=== PATIENT | female | born 1960 | race African-American/Black ===

== ENCOUNTER 2018-08-30 21:54 | Emergency (ER) | payer BC ==
[~2018-08-30] VITALS: Ht 170.2 cm; Wt 62.0 kg
[2018-08-31] MEDS ORDERED: IBUPROFEN 800MG TABLET PO ONE (03:45)
[2018-08-31 03:56] VITALS: BP 143/80
[2018-08-31 07:55] LABS: CLARITY URINE CLEAR (CLEAR); COLOR URINE YELLOW (YELLOW); KETONES URINE NEGATIVE (NEGATIVE); LEUKOCYTE ESTERASE URINE 2+ (NEGATIVE); NITRITE URINE NEGATIVE (NEGATIVE); OCCULT BLOOD URINE 2+ (NEGATIVE); PROTEIN URINE NEGATIVE (NEGATIVE); SPECIFIC GRAVITY URINE 1.002 (1.005-1.030); UROBILINOGEN URINE 0.2 E.U./dL (0.2-1.0)
== END 2018-08-31 03:58 | disposition home or self-care (01) ==
LOC: ER 21:54
DX: R30.0 Dysuria (principal); R35.0 Frequency of micturition; R39.15 Urgency of urination; N32.89 Other specified disorders of bladder; Z87.440 Personal history of urinary (tract) infections; R03.0 Elevated blood-pressure reading, without diagnosis of hypertension
CPT/HCPCS: 87077; 87186; 99283

== ENCOUNTER 2019-06-07 05:09 | Day surgery (SDC) | payer BC ==
[~2019-06-07] VITALS: Ht 170.2 cm; Wt 61.2 kg
[2019-06-07 06:20] LABS: BASOPHILS % 0.7 % (0.0-2.0); EOSINOPHILS % 5.4 % (0.0-5.0); HEMATOCRIT. 34.9 % (36.0-48.0); HEMOGLOBIN. 11.4 g/dL (12.0-16.0); MEAN CORPUSCULAR HEMOGLOBIN 27.9 pg (28.0-32.0); MEAN CORPUSCULAR VOLUME 85.5 fL (81.0-99.0); MEAN PLATELET VOLUME 11.1 fl (7.4-10.4); MONOCYTES % 8.3 % (2.0-8.0); NEUTROPHILS % 41.6 % (40.0-76.0); PLATELET 150 x1000/uL (130-400); RED BLOOD CELL COUNT 4.08 mill/uL (4.2-5.4); RED CELL DISTRIBUTION WIDTH 12.4 % (11.6-14.6)
[2019-06-07 06:23] LABS: CHLORIDE 107 mEq/L (98-107)
[2019-06-07 06:27] LABS: PARTIAL THROMBOPLASTIN TIME 30.1 sec (23.4-31.0); PROTHROMBIN TIME 11.1 sec (9.6-11.0)
[2019-06-07] MEDS ORDERED: LACTATED RINGERS 1,000 ML IV SCH (07:15)
[2019-06-07] MEDS ORDERED: BUPIVACAINE/EPINEPH/PF 0.25%/0.0005 10ML ONE (07:21)
[2019-06-07] MEDS ORDERED: SKIN ADHESIVE 0.7 GM EA TOP ONE (07:22)
[2019-06-07 07:27] LABS: CLARITY URINE CLEAR (CLEAR); COLOR URINE YELLOW (YELLOW); KETONES URINE NEGATIVE (NEGATIVE); LEUKOCYTE ESTERASE URINE TRACE (NEGATIVE); NITRITE URINE NEGATIVE (NEGATIVE); OCCULT BLOOD URINE NEGATIVE (NEGATIVE); PROTEIN URINE NEGATIVE (NEGATIVE); SPECIFIC GRAVITY URINE 1.014 (1.005-1.030); UROBILINOGEN URINE 0.2 E.U./dL (0.2-1.0)
[2019-06-07 07:36] LABS: UCG SCREEN NEGATIVE
[2019-06-07] MEDS ORDERED: VASOPRESSIN 20 UNIT/ML 1ML ONE (07:37)
[2019-06-07] MEDS ORDERED: PRAZ1CAP5 PO (08:15)
[2019-06-07] MEDS ORDERED: TAP5 PO (08:15)
[2019-06-07] MEDS ORDERED: CYCL30DR OP (08:15)
[2019-06-07] MEDS ORDERED: MIDAZOLAM HCL 2 MG/2 ML VIAL ONE (08:25)
[2019-06-07] MEDS ORDERED: PROPOFOL 200MG/20ML VIAL IV ONE (08:25)
[2019-06-07] MEDS ORDERED: FENTANYL CITRATE/PF 50MCG/ML 2ML VIAL ONE (08:25)
[2019-06-07] MEDS ORDERED: ROCURONIUM BROMIDE 10MG/ML VIAL 5ML IV ONE ×2 (08:26→09:41)
[2019-06-07] MEDS ORDERED: LIDOCAINE HCL/PF 1% 10 MG/ML 5ML VIAL ONE (08:26)
[2019-06-07] MEDS ORDERED: PHENYLEPHRINE HCL 10 MG/ML 1ML (IV VIAL) IV ONE (08:26)
[2019-06-07] MEDS ORDERED: CEFAZOLIN SODIUM 1000MG/VIAL ONE (08:27)
[2019-06-07] MEDS ORDERED: SUCCINYLCHOLINE CHLORIDE 200MG/10ML IV ONE (08:34)
[2019-06-07] MEDS ORDERED: GLYCOPYRROLATE 0.2 MG/ML 2ML VIAL ONE ×2 (08:35→10:03)
[2019-06-07] MEDS ORDERED: DEXAMETHASONE 4MG/ML 1ML VIAL ONE (09:33)
[2019-06-07] MEDS ORDERED: ONDANSETRON HCL 4MG/2ML INJ ONE (09:33)
[2019-06-07] MEDS ORDERED: NEOSTIGMINE METHYLSULFATE 1MG/ML 10 ML VIAL ONE (10:03)
[2019-06-07] MEDS ORDERED: HYDRALAZINE 20MG/ML VIAL ONE (10:56)
[2019-06-07] MEDS ORDERED: MEPERIDINE HCL/PF 25MG/ML CPJ IV PRN (11:15)
[2019-06-07 11:23] VITALS: BP 152/88
[2019-06-07] MEDS ORDERED: IBUPROFEN 800MG TABLET PO NR (12:45)
== END 2019-06-07 13:40 | disposition home or self-care (01) ==
LOC: OR 05:09
PROVIDERS: ATTEND Obstetrics & Gynecology Obstetrics
DX: N84.0 Polyp of corpus uteri (principal); D26.0 Other benign neoplasm of cervix uteri; N83.202 Unspecified ovarian cyst, left side; E03.9 Hypothyroidism, unspecified; Z91.012 Allergy to eggs; Z91.011 Allergy to milk products; Z79.899 Other long term (current) drug therapy; Z85.850 Personal history of malignant neoplasm of thyroid; Z98.890 Other specified postprocedural states; Z80.9 Family history of malignant neoplasm, unspecified; Z83.3 Family history of diabetes mellitus
CPT/HCPCS: 36415; 58558; 58661; 80048; 81003; 81025; 85025; 85610; 85730; 88108; 88305; 93005; J0171; J0330; J0360; J0690; J1100; J2175; J2250; J2370; J2405; J2704; J2710; J3010; J3490